=== PATIENT | male | born 1970 | race Two or more races ===

== ENCOUNTER 2019-07-23 17:43 | Emergency (ER) | payer MEDICAID ==
[~2019-07-23] VITALS: Ht 172.7 cm; Wt 90.7 kg
[2019-07-23] MEDS ORDERED: LANTUS SOL100 UNIT/1 SUBQ (17:49)
[2019-07-23] MEDS ORDERED: LORazepam Inj 2mg/ml 1ml IV ONE (18:00)
[2019-07-23 18:16] VITALS: BP 142/74
[2019-07-23 18:22] LABS: BASOPHILS % (AUTO) 1.7 % (0.0-2.0); EOSINOPHILS % (AUTO) 0.1 % (0.0-3.0); HEMATOCRIT 49.9 % (42.0-52.0); HEMOGLOBIN 15.7 G/DL (14.2-18.0); LYMPHOCYTES % (AUTO) 30.2 % (20.0-45.0); MEAN CORPUSCULAR VOLUME 78 FL (80-99); PLATELET COUNT 375 K/UL (150-450); RED CELL DISTRIBUTION WIDTH 16.5 % (11.6-14.8); WHITE BLOOD COUNT 5.9 K/UL (4.8-10.8)
--- NOTE | 2019-07-23 18:31 | Diagnostic Imaging Report ---
Indication: Headache Technique: Contiguous 5 mm thick transaxial imaging of the head obtained in a Siemens Sensation [address] scanner. Soft tissue and bone windows generated. Automatic Exposure Control was utilized. Total Dose length Product (DLP): 1098.9mGycm CT Dose Index Volume (CTDIvol): 53.4 mGy Comparison: none Findings: The size and configuration of the cortical sulci, basal cisterns, and ventricles are within normal limits for age. There is no mass effect, midline shift, or edema identified. There is no evidence of acute hemorrhage or abnormal intra-axial or extra-axial fluid collections. The bones and soft tissues are unremarkable. Impression: No mass effect, edema or acute bleed. The CT scanner at [facility] is accredited by the [employer] and the scans are performed using dose optimization techniques as appropriate to a performed exam including Automatic Exposure control.
[2019-07-23 18:32] VITALS: BP 136/88
[2019-07-23 18:32] LABS: ANION GAP 12 mmol/L (5-15); BLOOD UREA NITROGEN 16 mg/dL (7-18); CALCIUM 9.3 MG/DL (8.5-10.1); CARBON DIOXIDE 28 MMOL/L (21-32); CHLORIDE 102 MMOL/L (98-107); CREATININE 0.9 MG/DL (0.55-1.30); POTASSIUM 3.7 MMOL/L (3.5-5.1); SODIUM 142 MMOL/L (136-145)
[2019-07-23 18:36] LABS: ALANINE AMINOTRANSFERASE 24 U/L (12-78); ALBUMIN 3.6 G/DL (3.4-5.0); ALBUMIN/GLOBULIN RATIO 0.9 (1.0-2.7); ALKALINE PHOSPHATASE 77 U/L (46-116); ASPARTATE AMINO TRANSFERASE 13 U/L (15-37); BILIRUBIN,TOTAL 0.7 MG/DL (0.2-1.0)
[2019-07-23 19:20] VITALS: BP 119/73
--- NOTE | 2019-07-23 20:52 | Diagnostic Imaging Report ---
Indication: 49-year-old male with headache altered mental status Technique: The head was imaged in a 1.5 [place] magnet. Sequences obtained include sagittal and axial T1 FLAIR, axial T2 fast spin echo with fat saturation, axial T2* GRE, axial T2 FLAIR, diffusion and ADC map. Comparison: None Findings: The size, contour, and configuration of the sulci, ventricles, and basal cisterns appear normal. [place]-white differentiation is normal. There is a tiny focus of T2 hyperintense signal about 4 mm in the left cerebellum. This may be an old lacunar infarct. There is no restricted diffusion. There is no mass effect, midline shift, edema, or hemorrhage. There are no abnormal extra-axial or intra-axial fluid collections. The corpus callosum is unremarkable. The brainstem and cerebellum are unremarkable. The sella is unremarkable. Bone marrow signal within the visualized osseous structures appears age appropriate and unremarkable otherwise. Impression: Negative for acute findings. [facility] has communicated the preliminary results to the Emergency Department. Their findings are largely concordant with this report.
[2019-07-23] MEDS ORDERED: ATIVAN1 MG ORAL (21:17)
[2019-07-23 21:20] VITALS: BP 125/88
--- NOTE | 2019-07-23 21:50 | Emergency Room Report ---
History of Present Illness General Chief Complaint: General Complaint Source: Patient Present Illness HPI 49-year-old male presents ED for evaluation. States that EMS patient appears anxious. States symptoms started as he was leaving work today. Patient feels tremulous and feels tingling and weakness in his arms and legs. Denies any slurred speech or facial droop. Denies any history of anxiety but states he has felt similar episodes in the past. Denies alcohol or drug use. Denies chest pain or shortness of breath. No other aggravating relieving factors. Denies any other associated symptoms Allergies: Coded Allergies: No Known Allergies (Unverified , 07/23/19) Patient History Past Medical History: DM Past Surgical History: none Pertinent Family History: none Social History: Denies: smoking, alcohol use, drug use Immunizations: UTD Reviewed Nursing Documentation: PMH: Agreed; PSxH: Agreed Nursing Documentation-PMH Past Medical History: No History, Except For Hx Diabetes: Yes History Of Psychiatric Problem: Yes - anxiety Review of Systems All Other Systems: negative except mentioned in HPI Physical Exam Vital Signs Date Time Temp Pulse Resp B/P (MAP) Pulse Ox O2 Delivery O2 Flow Rate FiO2 07/23/19 17:47 97.9 101 18 147/95 (112) 99 Room Air Sp02 EP Interpretation: reviewed, normal General Appearance: alert, GCS 15, non-toxic, mild distress Head: normocephalic, atraumatic Eyes: bilateral eye normal inspection, bilateral eye PERRL ENT: hearing grossly normal, normal pharynx, no angioedema, normal voice Neck: full range of motion, supple/symm/no masses Respiratory: chest non-tender, lungs clear, normal breath sounds, speaking full sentences Cardiovascular #1: regular rate, rhythm, no edema Cardiovascular #2: 2+ carotid (R), 2+ carotid (L), 2+ radial (R), 2+ radial (L) , 2+ dorsalis pedis (R), 2+ dorsalis pedis (L) Gastrointestinal: normal bowel sounds, non tender, soft, non-distended, no guarding, no rebound Rectal: deferred Genitourinary: normal inspection, no CVA tenderness Musculoskeletal: back normal, normal range of motion, gait/station normal, non- tender Neurologic: alert, motor strength/tone normal, clerical adjudicator III-XII nml as tested, oriented x3, sensory intact, responsive, other - slow speech. somewhat ataxia in upper extremities Psychiatric: judgement/insight normal, memory normal, no suicidal/homicidal ideation, anxious Reflexes: 3+ bicep (R), 3+ bicep (L), 3+ tricep (R), 3+ tricep (L), 3+ knee (R) , 3+ knee (L) Skin: no rash Lymphatic: no adenopathy Medical Decision Making Diagnostic Impression: Primary Impression: Episode of generalized weakness ER Course Hospital Course 49-year-old M presents ED complaining of tingling to arms and legs, slow speech Differential diagnoses include: ETOH, CVA/TIA, dehydration, anxiety Clinical course Patient placed on stretcher. on silk screen etcher. After initial history and physical I ordered labs, CT Brain, IVFs and ativan labs reviewed- no leukocytosis, hemoglobin/hematocrit stable, electrolytes okay CT brain - no acute process Family now at bedside. Patient showing no clinical improvement after medication. Family states that patient was admitted for a similar presentation in [place] last year and was told he had a TIA. Therefore I ordered MRI Shows no acute process. Old CVA noted. I reassessed the patient. Patient does appear more calm. Less tremulous. Still no focal deficits. Labs unremarkable. Vitals stable. I discussed findings with patient and family. I do believe anxiety could be a possibility. I discussed option for admission but patient declined and states he like to be discharged. States he has a PMD to follow-up with. Safe for discharge for close outpatient follow-up I. I feel this is a highly complex case requiring extensive working including EKG/Rhythm strip, Xray/CT/US, Blood/urine lab work, repeat exams while in ED, and administration of strong opiates/narcotics for pain control, admission to hospital or close patient follow up. Diagnosis - episode of generalized weakness Stable and discharged to home with Rx Ativan. Followup with PMD. Return to ED if symptoms recur or worse Labs Test 07/23/19 18:00 White Blood Count 5.9 K/UL (4.8-10.8) Red Blood Count 6.40 M/UL (4.70-6.10) Hemoglobin 15.7 G/DL (14.2-18.0) Hematocrit 49.9 % (42.0-52.0) Mean Corpuscular Volume 78 FL (80-99) Mean Corpuscular Hemoglobin 24.5 PG (27.0-31.0) Mean Corpuscular Hemoglobin Concent 31.5 G/DL (32.0-36.0) Red Cell Distribution Width 16.5 % (11.6-14.8) Platelet Count 375 K/UL (150-450) Mean Platelet Volume 5.8 FL (6.5-10.1) Neutrophils (%) (Auto) 60.0 % (45.0-75.0) Lymphocytes (%) (Auto) 30.2 % (20.0-45.0) Monocytes (%) (Auto) 8.0 % (1.0-10.0) Eosinophils (%) (Auto) 0.1 % (0.0-3.0) Basophils (%) (Auto) 1.7 % (0.0-2.0) Sodium Level 142 MMOL/L (136-145) Potassium Level 3.7 MMOL/L (3.5-5.1) Chloride Level 102 MMOL/L (98-107) Carbon Dioxide Level 28 MMOL/L (21-32) Anion Gap 12 mmol/L (5-15) Blood Urea Nitrogen 16 mg/dL (7-18) Creatinine 0.9 MG/DL (0.55-1.30) Estimat Glomerular Filtration Rate > 60 mL/min (>60) Glucose Level 196 MG/DL (74-106) Calcium Level 9.3 MG/DL (8.5-10.1) Total Bilirubin 0.7 MG/DL (0.2-1.0) Aspartate Amino Transf (AST/SGOT) 13 U/L (15-37) Alanine Aminotransferase (ALT/SGPT) 24 U/L (12-78) Alkaline Phosphatase 77 U/L (46-116) Total Protein 7.7 G/DL (6.4-8.2) Albumin 3.6 G/DL (3.4-5.0) Globulin 4.1 g/dL Albumin/Globulin Ratio 0.9 (1.0-2.7) Salicylates Level 0.2 ug/mL (2.8-20) Acetaminophen Level < 2 MCG/ML (10-30) Serum Alcohol < 3 mg/dL CT/MRI/US Diagnostic Results CT/MRI/US Diagnostic Results #1: Imaging Test Ordered: CT Head Impression Impression: No acute intracranial pathology is detected. If there is concern for etiology such as early acute lacunar infarcts, magnetic resonance imaging of the brain with diffusion-weighted sequences should be performed for follow- up. Clinical correlation is necessary. Incidental findings: The ventricular system is age appropriate. No midline shift or mass-effect. No abnormal extra-axial collection. Mastoid air cells are well pneumatized. Mild chronic ethmoid sinusitis. The calvarium is unremarkable. CT/MRI/US Diagnostic Results #2: Imaging Test Ordered: MRI BRain Impression MRI HEAD Without Contrast: No acute infarction or acute intracranial pathology. Small old lacunar infarct in the left cerebellum. Small developmental venous anomaly in the right cerebellum. Last Vital Signs Date Time Temp Pulse Resp B/P (MAP) Pulse Ox O2 Delivery O2 Flow Rate FiO2 07/23/19 21:20 98.1 72 16 125/88 98 Room Air Status: improved Disposition: HOME, SELF-CARE Condition: Stable Scripts Lorazepam* (ATIVAN*) 1 Mg Tablet 1 MG ORAL THREE TIMES A DAY, #10 TAB Prov: Michael Vargas MD 07/23/19 Referrals: NON PHYSICIAN (PCP) [facility] Patient Instructions: Panic Attacks, [id number], Transient Ischemic Attack, [id number] Michael Vargas MD Jul 23, 2019 21:50
== END 2019-07-23 21:20 | disposition home or self-care (01) ==
LOC: EDBD 17:43 → EMR 18:30 → CANBEDREQ 21:15 → EMR 21:20
DX: R53.1 Weakness (principal); R25.1 Tremor, unspecified; R20.2 Paresthesia of skin; E11.9 Type 2 diabetes mellitus without complications; F41.9 Anxiety disorder, unspecified
CPT/HCPCS: 36415; 70450; 70551; 80053; 85025; 96361; 96374; G0480; G0481; J7030; Z7502; 99284